=== PATIENT | female | born 1995 | race Caucasian/White ===

== ENCOUNTER → 2025-01-08 08:08 | Outpatient (REF) | payer OTHER, SELFPAY | LOC: PNTC 08:08 | PROVIDERS: ATTENDING PHYSICIAN Student in an Organized Health Care Education/Training Program | DX: Z36.0 Encounter for antenatal screening for chromosomal anomalies (principal); Z36.82 Encounter for antenatal screening for nuchal translucency; Z3A.13 13 weeks gestation of pregnancy | CPT/HCPCS: 76801; 76813 ==